=== PATIENT | male | born 1965 | race Hispanic/Latino ===

== ENCOUNTER 2017-03-14 18:26 | Inpatient (IN) | payer MEDICARE ==
--- NOTE | 2017-03-14 20:17 | ED PDOC ---
HPI: Psych/Substance Abuse Time Seen by Provider: 03/14/17 18:58 Chief Complaint (Nursing): Alcohol Ingestion Chief Complaint (Provider): Alcohol abuse, cutting History Per: Patient History/Exam Limitations: no limitations Onset/Duration Of Symptoms: Unknown Modifying Factor(s): None, Alcohol Additional Complaint(s): Pt states that he is not suicidal however when he enters the room he throws the garbage can and then wraps the call button cord around his neck. Pt state she has not taken his medications for a long time. Pt also has several deep abrasion on the right forearm. Past Medical History Reviewed: Historical Data, Nursing Documentation, Vital Signs Vital Signs: Last Vital Signs Temp 98.1 F 03/14/17 18:35 Pulse 115 H 03/14/17 18:35 Resp 19 03/14/17 18:35 BP 156/75 H 03/14/17 18:35 Pulse Ox 99 03/14/17 18:35 - Medical History PMH: Depression, Schizophrenia - Surgical History Surgical History: No Surg Hx - Family History Family History: States: Unknown Family Hx - Living Arrangements Living Arrangements: Other - Allergies Allergies/Adverse Reactions: Allergies Allergy/AdvReac Type Severity Reaction Status Date / Time No Known Allergies Allergy Verified 03/14/17 18:37 Review of Systems ROS Statement: Except As Marked, All Systems Reviewed And Found Negative Constitutional: Negative for: Fever, Chills Psych: Positive for: Other Physical Exam - Reviewed Nursing Documentation Reviewed: Yes Vital Signs Reviewed: Yes - Physical Exam Appears: Positive for: Well, Non-toxic, No Acute Distress Head Exam: Positive for: ATRAUMATIC, NORMAL INSPECTION, NORMOCEPHALIC Skin: Positive for: Warm. Negative for: Normal Color ((+) deep thick abrasion on the right forearm, no active bleeding ) Eye Exam: Positive for: Normal appearance ENT: Positive for: Normal ENT Inspection Neck: Positive for: Normal, Painless ROM Cardiovascular/Chest: Positive for: Regular Rate, Rhythm Respiratory: Positive for: Normal Breath Sounds. Negative for: Accessory Muscle Use, Respiratory Distress Back: Positive for: Normal Inspection Extremity: Positive for: Normal ROM Neurologic/Psych: Positive for: Alert. Negative for: Oriented, Gait - ECG O2 Sat by Pulse Oximetry: 99 Medical Decision Making Medical Decision Making: Endorsed pending medical clearance and crisis evaluation. Pt given Haldol after refusing labs and being aggressive in the ER. Pt placed on asbestos wire finisher. Disposition - Clinical Impression Clinical Impression: Encounter for psychiatric assessment - Patient ED Disposition Is Patient to be Admitted: Transfer of Care - Disposition Disposition: Transfer of Care Disposition Time: 20:24 Condition: GOOD
--- NOTE | 2017-03-14 20:57 | ED PDOC ---
- Laboratory Results Result Diagrams: 03/14/17 22:45 03/14/17 22:45 - ECG Interpretation Of ECG: Sinus tach 119, no acute change, reviewed by PA and ED attending O2 Sat by Pulse Oximetry: 99 Pulse Ox Interpretation: Normal - Other Rad CXR X-Ray: Interpreted by Me, Viewed By Me X-Ray Interpretation: no acute finding Medical Decision Making Medical Decision Making: Case was signed out to marketing underwriter from [facility] pending sobriety and crisis eval. As per crisis counselor and psychiatrist [employer] hcm consultant, Dr. Del Rosario, patient does meet criteria for admission. Patient agrees to stay. Patient is medically stable for psychiatric admission. Disposition - Clinical Impression Clinical Impression: Schizophrenia - POA Present On Arrival: None - Disposition Disposition: Admitted as In-Patient Disposition Time: 02:04 Condition: FAIR Results - Lab Results Lab Results: 03/14/17 03/14/17 03/14/17 23:30 23:30 22:45 WBC 6.4 RBC 4.67 Hgb 15.1 Hct 45.2 MCV 96.9 H MCH 32.4 H MCHC 33.4 RDW 13.7 Plt Count 218 Sodium Potassium Chloride Carbon Dioxide Anion Gap BUN Creatinine Est GFR ( Amer) Est GFR (Non-Af Amer) Random Glucose Calcium Total Bilirubin AST ALT Alkaline Phosphatase Total Protein Albumin Globulin Albumin/Globulin Ratio Urine Color Yellow Urine Clarity Clear Urine pH 5.0 Ur Specific [place] 1.009 Urine Protein Negative Urine Glucose (UA) Neg Urine Ketones Negative Urine Blood Negative Urine Nitrate Negative Urine Bilirubin Negative Urine Urobilinogen 0.2-1.0 Ur Leukocyte Esterase Neg Urine RBC (Auto) 2 Urine Microscopic WBC 1 Urine Bacteria Rare Urine Opiates Screen Negative Urine Methadone Screen Negative Ur Barbiturates Screen Negative Ur Phencyclidine Scrn Negative Ur Amphetamines Screen Negative U Benzodiazepines Scrn Negative U Oth Cocaine Metabols Negative U Cannabinoids Screen Negative Alcohol, Quantitative 03/14/17 22:45 WBC RBC Hgb Hct MCV MCH MCHC RDW Plt Count Sodium 146 Potassium 4.3 Chloride 105 Carbon Dioxide 30 Anion Gap 15 BUN 10 Creatinine 0.9 Est GFR ( Amer) > 60 Est GFR (Non-Af Amer) > 60 Random Glucose 93 Calcium 8.6 Total Bilirubin 0.4 AST 29 ALT 38 Alkaline Phosphatase 61 Total Protein 7.4 Albumin 4.0 Globulin 3.4 Albumin/Globulin Ratio 1.2 Urine Color Urine Clarity Urine pH Ur Specific [place] Urine Protein Urine Glucose (UA) Urine Ketones Urine Blood Urine Nitrate Urine Bilirubin Urine Urobilinogen Ur Leukocyte Esterase Urine RBC (Auto) Urine Microscopic WBC Urine Bacteria Urine Opiates Screen Urine Methadone Screen Ur Barbiturates Screen Ur Phencyclidine Scrn Ur Amphetamines Screen U Benzodiazepines Scrn U Oth Cocaine Metabols U Cannabinoids Screen Alcohol, Quantitative 125 H
[2017-03-14 22:54] LABS: HEMOGLOBIN 15.1 g/dL (12.0-18.0); MEAN CELL VOLUME 96.9 fl (80.0-94.0); MEAN CORPUSCULAR HEMOGLOBIN 32.4 pg (27.0-31.0); MEAN CORPUSCULAR HGB CONC 33.4 g/dL (33.0-37.0); RBC 4.67 Mil/uL (4.40-5.90); RED CELL DISTRIBUTION WIDTH 13.7 % (11.5-14.5); WHITE BLOOD COUNT 6.4 K/uL (4.8-10.8)
[2017-03-14 23:07] LABS: ALB/GLOB RATIO 1.2 (1.0-2.1); ALT/SGPT 38 U/L (21-72); AST/SGOT 29 U/L (17-59); BLOOD UREA NITROGEN 10 mg/dl (9-20); CALCIUM 8.6 mg/dL (8.4-10.2); GFR AFRICAN-AMERICAN > 60; GFR NON-AFRICAN AMERICAN > 60
[2017-03-14 23:53] LABS: URINE BACTERIA RARE (<OCC); URINE BILIRUBIN NEGATIVE (NEGATIVE); URINE BLOOD NEGATIVE (NEGATIVE); URINE CLARITY CLEAR (Clear); URINE COLOR YELLOW (YELLOW); URINE GLUCOSE (UA) NEG (Normal); URINE LEUKOCYTE ESTERASE NEG Leu/uL (Negative); URINE NITRATE NEGATIVE (NEGATIVE); URINE PROTEIN NEGATIVE (NEGATIVE); URINE UROBILINOGEN 0.2-1.0 mg/dL (0.2-1.0)
[2017-03-14 23:54] LABS: BARBITURATES, UR NEGATIVE (NEGATIVE); BENZODIAZEPINES, UR NEGATIVE (NEGATIVE); OPIATES, UR NEGATIVE (NEGATIVE); PHENCYCLIDINE, UR NEGATIVE (NEGATIVE)
[2017-03-15 03:38] VITALS: O2SAT 95
[2017-03-15] MEDS ORDERED: DiphenhydrAMINE 50 mg/ml Inj IM PRN (03:56)
[2017-03-15] MEDS ORDERED: Magnesium Hydroxide Susp 30 ml UD PO PRN (03:56)
[2017-03-15] MEDS ORDERED: Alum-Mag Hydrox-Simethicone Susp (30 mL) PO PRN (03:56)
--- NOTE | 2017-03-15 04:20 | PCM.BM ---
<Jacob Bryant - Last Filed: 03/15/17 04:17> Treatment Plan Problems - Problems identified on initial assessmt Auditory Hallucinations Date Initiated: 03/15/17 Time Initiated: 04:18 Assessment reference: NA Status: Active Medication nonadherence Date Initiated: 03/15/17 Time Initiated: 04:19 Assessment reference: NA Status: Active Treatment assets and liabiliti Patient Assests: ADL independent, physically healthy, negotiates basic needs, cognitively intact Patient Liabilities: financial problems, poor support system, other (homeless) - Milieu Protocol Maintain good personal hygiene: daily Encourage regular showers, daily Remind patient to perform daily oral care Conduct patient checks and document Observation sheet: Q15 minutes Maintain personal safety: every shift Educate patient to report safety concerns to staff, every shift Monitor environment for contraband/sharps Medication safety: Monitor for expected outcome, potential side effects: every shift, Assess barriers to learning: every shift, Assess readiness for medication education: every shift <Agnieszka Mckeon - Last Filed: 03/17/17 14:36> Treatment assets and liabiliti Patient Assests: cooperative, resourceful, ADL independent, physically healthy, negotiates basic needs, cognitively intact Patient Liabilities: live alone (patient currently homeless- [facility]), financial problems, poor support system, substance abuse, other (noncompliant) Family Contact Family involvement: Patient does not wish Family/SO involvement Family contact: Patient declines to allow family contact at present - Outside Agency Agency 2 Care involvment: Following patient during stay, Other Agency contact name: [facility] Agency contact number: Jorge [phone] - Goals for Treatment Patient goals for treatment: Patient to continue stabilization on 3NP through medication management and group/supportive therapy. Patient to be encouraged to attend groups regularly to promote self-awareness, sobriety,compliance, and improve insight, coping skills and self-esteem. Patient to be provided with referral for appropriate level of aftercare to reduce risk of future hospitalizations and ensure safety in the community. Discharge/Continuing Care - Education Needs Education Needs: Patient Medication, Patient Coping Skills, Patient Anger Management skills, Patient Community resources, Patient Aftercare Safety Plan - Discharge Discharge Criteria: Tolerates medication w/o severe side effects, Free of Suicidal thoughts, Free of paranoid thoughts, Free of agitation, Normal sleep pattern, Ability to care for self, No longer exhibiting s/s of withdrawal, Reduction of target symptoms Discharge to:: Intermediate - Treatment Team Participation Discussed with Family/SO: No Was Patient/Family/SO present at Treatment Team Meeting: Yes
--- NOTE | 2017-03-15 08:03 | CARD ---
APPROVED REPORT EKG Measurement Heart [id number] <Conclusion> Sinus tachycardia Otherwise normal ECG
--- NOTE | 2017-03-15 08:50 | CP.PCM.CON ---
<Brandon Jimenez - Last Filed: 03/15/17 08:43> History of Present Illness - History of Present Illness History of Present Illness: CC: Suicidal ideation secondary to schizoaffective disorder and alcohol intoxication 51 year old male with PMHx of Schizoaffective disorder seen at bedside after being admitted through the ED yesterday for suicidal thoughts and alcohol intoxication. Patient states that he hears voices in his head x 10 years that tell him to cut himself which he admits to doing for "many years". Patient denies any homicidal ideations and states that the voices do not instruct him to harm others. He states that he normally takes Seroquel for his schizoaffective disorder and says that he has not taken the medication in 5 days. Patient denies any other medical complaints at this time including symptoms of alcohol withdrawal. Denies N/V/F/C/CP/SOB/posterior calf pain/ urinary retention/constipation. Meds: Seroquel All: Penicillins PSH: Denies FH: Unremarkable SH: Homeless, denies tobacco use, ETOH (drinks one 12-pack of beer per sitting, every 4-5 days), denies illicit drug use Review of Systems - Review of Systems Review of Systems: ROS as per HPI. All other systems reviewed and found to be negative Past Patient History - Past Social History Smoking Status: Never Smoked Alcohol: > 2 Drinks/Day Drugs: Denies Home Situation {Lives}: Homeless - CARDIAC Hx Cardiac Disorders: No - PULMONARY Hx Respiratory Disorders: No Hx Tuberculosis: No - NEUROLOGICAL Hx Neurological Disorder: No HX Cerebrovascular Accident: No Hx Seizures: No - HEENT Hx HEENT Problems: No - RENAL Hx Chronic Kidney Disease: No Hx Renal Failure: No - ENDOCRINE/METABOLIC Hx Endocrine Disorders: No - HEMATOLOGICAL/ONCOLOGICAL Hx Blood Disorders: No Hx Cancer: No Hx Human Immunodeficiency Virus (HIV): No - INTEGUMENTARY Hx Dermatological Problems: No - MUSCULOSKELETAL/RHEUMATOLOGICAL Hx Musculoskeletal Disorders: No - GASTROINTESTINAL Hx Gastrointestinal Disorders: No - GENITOURINARY/GYNECOLOGICAL Hx Genitourinary Disorders: No Hx Sexually Transmitted Disorders: No - PSYCHIATRIC Hx Psychophysiologic Disorder: No Hx Anxiety: No Hx Bipolar Disorder: No Hx Depression: Yes Hx Schizophrenia: Yes - SURGICAL HISTORY Hx Surgeries: No - ANESTHESIA Hx Anesthesia: No Meds Allergies/Adverse Reactions: Allergies Allergy/AdvReac Type Severity Reaction Status Date / Time Penicillins Allergy RASH Verified 03/15/17 04:51 - Medications Medications: Current Medications Acetaminophen (Tylenol 325mg Tab) 650 mg PO Q4 PRN PRN Reason: pain level 4-7 Al Hydrox/Mg Hydrox/Simethicone (Maalox Plus 30 Ml) 30 ml PO Q4 PRN PRN Reason: Dyspepsia Diphenhydramine HCl (Benadryl) 50 mg IM Q6 PRN PRN Reason: Extrapyramidal S/S Unable PO Diphenhydramine HCl (Benadryl) 50 mg PO Q6 PRN PRN Reason: Extrapyramidal Symptoms Diphenhydramine HCl (Benadryl) 50 mg PO HS PRN PRN Reason: Sleep Haloperidol (Haldol) 5 mg PO Q4 PRN PRN Reason: Agitation Haloperidol Lactate (Haldol) 5 mg IM Q4 PRN PRN Reason: Agitation, Unable to Take PO Lorazepam (Ativan) 2 mg IM Q4 PRN PRN Reason: Anxiety/Agitation,Unable PO Lorazepam (Ativan) 1 mg PO Q4 PRN PRN Reason: Anxiety/Agitation Magnesium Hydroxide (Milk Of Magnesia) 30 ml PO HS PRN PRN Reason: Constipation Physical Exam - Constitutional Appears: Well, Non-toxic - Head Exam Head Exam: ATRAUMATIC, NORMOCEPHALIC - Eye Exam Eye Exam: EOMI, PERRL Pupil Exam: PERRL - ENT Exam ENT Exam: Mucous Membranes Moist - Neck Exam Neck exam: Positive for: Normal Inspection. Negative for: Tenderness - Respiratory Exam Respiratory Exam: Clear to Auscultation Bilateral, NORMAL BREATHING PATTERN - Cardiovascular Exam Cardiovascular Exam: REGULAR RHYTHM - GI/Abdominal Exam GI & Abdominal Exam: Soft. absent: Distended, Firm, Guarding, Tenderness - Rectal Exam Rectal Exam: Deferred - Extremities Exam Additional comments: Superficial lacerations noted to right forearm secondary to patient cutting himself. No clinical signs of infection noted at this time. - Neurological Exam Neurological exam: Alert, Oriented x3 - Psychiatric Exam Psychiatric exam: Depressed, Suicidal Ideation - Skin Skin Exam: Normal Color, Warm Results - Vital Signs Recent Vital Signs: Last Vital Signs Temp 97.3 F L 03/15/17 03:50 Pulse 103 H 03/15/17 03:50 Resp 20 03/15/17 03:51 BP 133/80 03/15/17 03:50 Pulse Ox 95 03/15/17 03:37 - Labs Result Diagrams: 03/14/17 22:45 03/14/17 22:45 Labs: Laboratory Results - last 24 hr 03/14/17 03/14/17 03/14/17 22:45 22:45 23:30 WBC 6.4 RBC 4.67 Hgb 15.1 Hct 45.2 MCV 96.9 H MCH 32.4 H MCHC 33.4 RDW 13.7 Plt Count 218 Sodium 146 Potassium 4.3 Chloride 105 Carbon Dioxide 30 Anion Gap 15 BUN 10 Creatinine 0.9 Est GFR ( Amer) > 60 Est GFR (Non-Af Amer) > 60 Random Glucose 93 Calcium 8.6 Total Bilirubin 0.4 AST 29 ALT 38 Alkaline Phosphatase 61 Total Protein 7.4 Albumin 4.0 Globulin 3.4 Albumin/Globulin Ratio 1.2 Urine Color Urine Clarity Urine pH Ur Specific [place] Urine Protein Urine Glucose (UA) Urine Ketones Urine Blood Urine Nitrate Urine Bilirubin Urine Urobilinogen Ur Leukocyte Esterase Urine RBC (Auto) Urine Microscopic WBC Urine Bacteria Urine Opiates Screen Negative Urine Methadone Screen Negative Ur Barbiturates Screen Negative Ur Phencyclidine Scrn Negative Ur Amphetamines Screen Negative U Benzodiazepines Scrn Negative U Oth Cocaine Metabols Negative U Cannabinoids Screen Negative Alcohol, Quantitative 125 H 03/14/17 23:30 WBC RBC Hgb Hct MCV MCH MCHC RDW Plt Count Sodium Potassium Chloride Carbon Dioxide Anion Gap BUN Creatinine Est GFR ( Amer) Est GFR (Non-Af Amer) Random Glucose Calcium Total Bilirubin AST ALT Alkaline Phosphatase Total Protein Albumin Globulin Albumin/Globulin Ratio Urine Color Yellow Urine Clarity Clear Urine pH 5.0 Ur Specific [place] 1.009 Urine Protein Negative Urine Glucose (UA) Neg Urine Ketones Negative Urine Blood Negative Urine Nitrate Negative Urine Bilirubin Negative Urine Urobilinogen 0.2-1.0 Ur Leukocyte Esterase Neg Urine RBC (Auto) 2 Urine Microscopic WBC 1 Urine Bacteria Rare Urine Opiates Screen Urine Methadone Screen Ur Barbiturates Screen Ur Phencyclidine Scrn Ur Amphetamines Screen U Benzodiazepines Scrn U Oth Cocaine Metabols U Cannabinoids Screen Alcohol, Quantitative Assessment & Plan - Assessment and Plan (Free Text) Assessment: 51 year old male with PMHx of Schizoaffective disorder seen at bedside after being admitted through the ED yesterday for suicidal thoughts and alcohol intoxication after not taking his psych meds x 5 days. Patient states that he hears voices in his head x 10 years that tell him to cut himself which he admits to doing for "many years". Plan: 1. Schizoaffective disorder - Continue treatment as per psych -Haldol Ativan - F/u chemistries 2. Suicidal ideation - Monitor <Vik Mendes - Last Filed: 03/15/17 18:26> Meds - Medications Medications: Current Medications Acetaminophen (Tylenol 325mg Tab) 650 mg PO Q4 PRN PRN Reason: pain level 4-7 Al Hydrox/Mg Hydrox/Simethicone (Maalox Plus 30 Ml) 30 ml PO Q4 PRN PRN Reason: Dyspepsia Diphenhydramine HCl (Benadryl) 50 mg IM Q6 PRN PRN Reason: Extrapyramidal S/S Unable PO Diphenhydramine HCl (Benadryl) 50 mg PO Q6 PRN PRN Reason: Extrapyramidal Symptoms Diphenhydramine HCl (Benadryl) 50 mg PO HS PRN PRN Reason: Sleep Haloperidol (Haldol) 5 mg PO Q4 PRN PRN Reason: Agitation Haloperidol Lactate (Haldol) 5 mg IM Q4 PRN PRN Reason: Agitation, Unable to Take PO Lorazepam (Ativan) 2 mg IM Q4 PRN PRN Reason: Anxiety/Agitation,Unable PO Lorazepam (Ativan) 1 mg PO Q4 PRN PRN Reason: Anxiety/Agitation Magnesium Hydroxide (Milk Of Magnesia) 30 ml PO HS PRN PRN Reason: Constipation Quetiapine Fumarate (Seroquel) 50 mg PO BID [facility] Last Admin: 03/15/17 18:22 Dose: 50 mg Quetiapine Fumarate (Seroquel) 100 mg PO HS [facility] Results - Vital Signs Recent Vital Signs: Last Vital Signs Temp 97.7 F 03/15/17 16:37 Pulse 102 H 03/15/17 16:37 Resp 20 03/15/17 16:37 BP 151/89 H 03/15/17 16:37 Pulse Ox 95 03/15/17 03:37 - Labs Result Diagrams: 03/14/17 22:45 03/14/17 22:45 Labs: Laboratory Results - last 24 hr 03/14/17 03/14/17 03/14/17 22:45 22:45 23:30 WBC 6.4 RBC 4.67 Hgb 15.1 Hct 45.2 MCV 96.9 H MCH 32.4 H MCHC 33.4 RDW 13.7 Plt Count 218 Sodium 146 Potassium 4.3 Chloride 105 Carbon Dioxide 30 Anion Gap 15 BUN 10 Creatinine 0.9 Est GFR ( Amer) > 60 Est GFR (Non-Af Amer) > 60 Random Glucose 93 Calcium 8.6 Total Bilirubin 0.4 AST 29 ALT 38 Alkaline Phosphatase 61 Total Protein 7.4 Albumin 4.0 Globulin 3.4 Albumin/Globulin Ratio 1.2 Urine Color Urine Clarity Urine pH Ur Specific [place] Urine Protein Urine Glucose (UA) Urine Ketones Urine Blood Urine Nitrate Urine Bilirubin Urine Urobilinogen Ur Leukocyte Esterase Urine RBC (Auto) Urine Microscopic WBC Urine Bacteria Urine Opiates Screen Negative Urine Methadone Screen Negative Ur Barbiturates Screen Negative Ur Phencyclidine Scrn Negative Ur Amphetamines Screen Negative U Benzodiazepines Scrn Negative U Oth Cocaine Metabols Negative U Cannabinoids Screen Negative Alcohol, Quantitative 125 H 03/14/17 23:30 WBC RBC Hgb Hct MCV MCH MCHC RDW Plt Count Sodium Potassium Chloride Carbon Dioxide Anion Gap BUN Creatinine Est GFR ( Amer) Est GFR (Non-Af Amer) Random Glucose Calcium Total Bilirubin AST ALT Alkaline Phosphatase Total Protein Albumin Globulin Albumin/Globulin Ratio Urine Color Yellow Urine Clarity Clear Urine pH 5.0 Ur Specific [place] 1.009 Urine Protein Negative Urine Glucose (UA) Neg Urine Ketones Negative Urine Blood Negative Urine Nitrate Negative Urine Bilirubin Negative Urine Urobilinogen 0.2-1.0 Ur Leukocyte Esterase Neg Urine RBC (Auto) 2 Urine Microscopic WBC 1 Urine Bacteria Rare Urine Opiates Screen Urine Methadone Screen Ur Barbiturates Screen Ur Phencyclidine Scrn Ur Amphetamines Screen U Benzodiazepines Scrn U Oth Cocaine Metabols U Cannabinoids Screen Alcohol, Quantitative Assessment & Plan - Assessment and Plan (Free Text) Plan: Patient seen and examined. Agree with consult as documented by the resident. Thank you for the consultation.
--- NOTE | 2017-03-15 10:54 | RAD ---
HISTORY: clearance COMPARISON: No prior. FINDINGS: LUNGS: No active pulmonary disease. PLEURA: No significant pleural effusion identified, no pneumothorax apparent. CARDIOVASCULAR: Normal. OSSEOUS STRUCTURES: No significant abnormalities. VISUALIZED UPPER ABDOMEN: Normal. OTHER FINDINGS: None. IMPRESSION: No active disease.
--- NOTE | 2017-03-15 16:50 | PCM.PSYCH ---
Initial Psychiatric Evaluation - Initial Psychiatric Evaluation Chief Complaint (in patient's own words): I was depressed and the voices told me to hurt myself Patient's Reaction to Hospitalization: pt requested help History of Present Illness and Precipitating Events: Pt is a 51-year-old, , Single Male,with previous psychiatric diagnosis of schizoaffective disorder and polysubstance use disorder pto was brought to the ED via [facility], secondary to bystandards at the bus stop contacted EMS due pt exhibiting several lacerations to his right arm a pt reportedly has not been compliant with medications or follow up started to experience command auditory hallucinations telling him to cut himself he also started using increasing amounts of alcohol pt denied homicidal ideations denied suicidal ideations on the unit Current Medications: Active Medications Generic Name Dose Route Start Last Admin Trade Name Freq PRN Reason Stop Dose Admin Acetaminophen 650 mg 03/15/17 03:56 Tylenol 325mg Tab PO Q4 PRN pain level 4-7 Al Hydrox/Mg Hydrox/Simethicone 30 ml 03/15/17 03:56 Maalox Plus 30 Ml PO Q4 PRN Dyspepsia Diphenhydramine HCl 50 mg 03/15/17 03:56 Benadryl IM Q6 PRN Extrapyramidal S/S Unable PO Diphenhydramine HCl 50 mg 03/15/17 03:56 Benadryl PO Q6 PRN Extrapyramidal Symptoms Diphenhydramine HCl 50 mg 03/15/17 03:59 Benadryl PO HS PRN Sleep Haloperidol 5 mg 03/15/17 03:56 Haldol PO Q4 PRN Agitation Haloperidol Lactate 5 mg 03/15/17 03:56 Haldol IM Q4 PRN Agitation, Unable to Take PO Lorazepam 2 mg 03/15/17 03:56 Ativan IM Q4 PRN Anxiety/Agitation,Unable PO Lorazepam 1 mg 03/15/17 03:56 Ativan PO Q4 PRN Anxiety/Agitation Magnesium Hydroxide 30 ml 03/15/17 03:56 Milk Of Magnesia PO HS PRN Constipation Quetiapine Fumarate 50 mg 03/15/17 17:00 Seroquel PO BID YOGESH Quetiapine Fumarate 100 mg 03/15/17 22:00 Seroquel PO HS YOGESH Past Psychiatric History - Past Psychiatric History Explanation of prior treatment: unspecified number of hospitaliztions, history of non compliance History of Abuse: denied History of ETOH/Drug Use: histroy of alcohol and cocaine abuse Pertinent Medical Hx (Current Medical&Sleep Prob, Allergies): Allergies Allergy/AdvReac Type Severity Reaction Status Date / Time Penicillins Allergy RASH Verified 03/15/17 04:51 QUEtiapine [SEROquel] 300 mg PO HS 03/15/17 Mental Status Examination - Personal Presentation Personal Presentation: Looks older than stated age Additional comments: unkempt - Affect Affect: Constricted, Depressed - Reliability in Providing Information Reliability in Providing Information: Poor, due to altered mood, Poor, due to cognitve impairment - Speech Speech: Disorganized - Mood Mood: Depressed, Anxious - Formal Thought Process Formal Thought Process: Circumstantial - Hallucinations/Delusions Hallucinations: Auditory Additional comments: pt reeported non command auditory hallucinations - Obsessions/Compulsions Obsessions: No Compulsions: No - Cognitive Functions Orientation: Person, Place Attention/Concentration: Easily distracted Abstract Thinking: [place] Estimate of Intelligence: Below average Judgement: Imparied, as evidence by: Poor judgement, Imparied, as evidence by: Lack of insight into illness Memory: Recent intact, as evidence by: Ability to recall events of the day - Risk Risk: Withdrawal, Diminished functioning - Strength & Assets Inventory Strength & Assets Inventory: Life experience - Limitations Additional comments: non compliance DSM 5 DX - DSM 5 DSM 5 Diagnosis: schizoaffective disorder depressed alcohol use disorder - Recommended/Plan of Treatment Treatment Recommendations and Plan of Treatment: start seroquel 200mg with plan to uptitrate continue with ativan prn and monitor pt for symptoms and signs of alcohol withdrawal motivational and group therapy Projected ELOS: 7 days Prognosis: guarded Discharge Plan and Discharge Criteria: pt has no thoughts of self mutilation
[2017-03-16 07:51] LABS: T4 8.58 ug/dl (5.5-11.0)
--- NOTE | 2017-03-16 13:11 | PCM.PYCHPN ---
Psychiatric Progress Note - Psychiatric Progress Note Patient seen today, length of contact: pt evaluated discussed with team chart reviewed Patient Chief Complaint: I still hear the voices but they do not tell me to hurt myself any more Problems Identified/Issues Discussed: pt seen in bed unkempt isolative low energy, reprorted having non command auditory hallucinations depressed mood and affect denied any current suicidal or homicidal ideations , pt not attending groups and with limited insight into illness Medical Problems: unspecified number of hospitaliztions, history of non compliance DSM 5 Symptoms Update: schizoaffective disorder alcohol use disorder Medication Change: Yes (increase seroquel) Medical Record Reviewed: Yes Mental Status Examination - Cognitive Function Orientation: Person, Place Attention: WNL Concentration: WNL Association: WNL Fund of Knowledge: Poor Decription of patient's judgement and insights: impaired nsight and poor judgement - Mood Mood: Depressed, Anxious - Affect Affect: Constricted, Depressed - Speech Speech: Soft - Formal Thought Process Formal Thought Process: Circumstantial Psychotic Thoughts and Behaviors: pt reported non command auditory hallucinations - Suicidal Ideation Suicidal Ideation: No - Homicidal Ideation Homicidal Ideation: No Goal/Treatment Plan - Goal/Treatment Plan Need for Continued Stay: Severe depression anxiety Progress Toward Problem(s) and Goals/Treatment Plan: increase seroquel to 300mg continue with ativan prn and monitor pt for symptoms and signs of alcohol withdrawal encourage pt to attend groups motivational and group therapy
[2017-03-17 09:07] VITALS: RESP 20; TEMP 96.8
--- NOTE | 2017-03-17 11:24 | PCM.PYCHPN ---
Psychiatric Progress Note - Psychiatric Progress Note Patient seen today, length of contact: pt evaluated discussed with team chart reviewed Patient Chief Complaint: I still hear am ok the voices are less today Problems Identified/Issues Discussed: pt seen in bed continues to be isolative in his room, encouraged pt to attend groups, pt reported clearing off of the auditory hallucinations, continues to feel down denied any current suicidal or homicidal ideations , pt with limited insight into illness Medical Problems: unspecified number of hospitaliztions, history of non compliance DSM 5 Symptoms Update: schizoaffective disorder bipolar alcohol use disorder alcohol induced mood disorder Medication Change: No Medical Record Reviewed: Yes Mental Status Examination - Cognitive Function Orientation: Person, Place Attention: WNL Concentration: WNL Association: WNL Fund of Knowledge: Poor Decription of patient's judgement and insights: impaired nsight and poor judgement - Mood Mood: Depressed, Anxious - Affect Affect: Constricted, Depressed - Speech Speech: Soft - Formal Thought Process Formal Thought Process: Circumstantial Psychotic Thoughts and Behaviors: pt clearing off of the auditory hallucinations - Suicidal Ideation Suicidal Ideation: No - Homicidal Ideation Homicidal Ideation: No Goal/Treatment Plan - Goal/Treatment Plan Need for Continued Stay: Severe depression anxiety, Discharge may exacerbated symptoms Progress Toward Problem(s) and Goals/Treatment Plan: continue seroquel to 300mg encourage pt to attend groups motivational and group therapy Estimated Date of D/C: 03/23/17
[2017-03-18 09:14] VITALS: BP 140/92; PULSE 105
--- NOTE | 2017-03-18 10:22 | PCM.PYCHDC ---
Mental Status Examination - Mental Status Examination Orientation: Person, Place, Situation Memory: Intact Mood: Neutral Affect: Constricted Speech: Appropriate Attention: WNL Concentration: WNL Association: WNL Fund of Knowledge: WNL Formal Thought Process: Circumstantial Description of patient's judgement and insight: partial nsight and poor judgement Psychotic Thoughts and Behaviors: pt at current mental status denied any perceptual disturbances and non elicited Suicidal Ideation: No Current Homicidal Ideation?: No Discharge Summary - Discharge Note Reason for Hospitalization: Pt is a 51-year-old, , Single Male,with previous psychiatric diagnosis of schizoaffective disorder and polysubstance use disorder pto was brought to the ED via [facility], secondary to bystandards at the bus stop contacted EMS due pt exhibiting several lacerations to his right arm a pt reportedly has not been compliant with medications or follow up started to experience command auditory hallucinations telling him to cut himself he also started using increasing amounts of alcohol pt denied homicidal ideations denied suicidal ideations on the unit Consultations:: List each consultation separately and include: 1. Reason for request. 2. Findings. 3. Follow-up Consultations: family practice Summary of Hospital Course include:: 1. Description of specific treatment plan utilized for patients during their course of treatmen. 2. Summarize the time- course for resolution of acute symptoms and/or regressed behaviors. 3. Describe issues identified and worked on during hospitalization. 4. Describe medication utilized. 5. Describe medical problems identified and treated. 6. Reassessment of suicide risk Summary of Hospital Course: pt on admission was started on alcohol withdrawal protocol and monitored for signs and symptoms of alcohol withdrawal pt was started on seroquel for depression and auditory hallucinations, was gradually uptitrated to 300mg daily pt was encouraged to attend groups, Motivational and supportive therapy provided pt requested to leave against medical advise, pt was educated about the risk of possible relapse on discharge, pt understood the [facility] were [facility] about the discharge of the patient On discharge the patient mental status was stable, denied suicidal or homicidal ideations denied perceptual disturbances denied any thoughts of self harm - Final Diagnosis (DSM 5) Condition upon Discharge: FAIR Disposition: HOME/ ROUTINE Follow-up Treatment Plan: continue seroquel to 300mg encourage pt to attend groups motivational and group therapy
== END 2017-03-18 11:12 | disposition home or self-care (01) | DRG 885 ==
LOC: H.ER 18:26 → H.ERHOLD 03-15 02:47 → H.PSYCH 03-15 03:48
PROVIDERS: ADMIT Psychiatry & Neurology Psychiatry; ATTEND Psychiatry & Neurology Psychiatry
PROC: GZHZZZZ Group Psychotherapy (ICD-10-PCS; principal; 2017-03-15)
DX: F25.9 Schizoaffective disorder, unspecified (principal); R45.851 Suicidal ideations; Z59.0 Homelessness; F10.14 Alcohol abuse with alcohol-induced mood disorder; F10.129 Alcohol abuse with intoxication, unspecified; F32.9 Major depressive disorder, single episode, unspecified; S50.811A Abrasion of right forearm, initial encounter; Z91.14 Patient's other noncompliance with medication regimen; Z91.19 Patient's noncompliance with other medical treatment and regimen; F14.10 Cocaine abuse, uncomplicated